=== PATIENT | male | born 1995 | race Caucasian/White ===

== ENCOUNTER 2018-02-26 10:29 | Emergency (ER) | payer OTHER ==
[~2018-02-26] VITALS: Ht 170.2 cm; Wt 58.4 kg
[~2018-02-26 10:29] MED LIST: FLEXERIL10 MG PO; NAPROSYN500 MG PO; TORADOL10 MG PO; VICODIN 5-3001 EACH PO
[2018-02-26 11:15] LABS: HEMATOCRIT 39.8 % (38.0-50.0); HEMOGLOBIN 14.7 G/DL (12.5-16.6); MCH 30.6 PG (29.0-34.0); MCHC 36.9 G/DL (30.0-36.0); MCV 82.9 FL (86-99); RBC DIS.WIDTH-CV 12.3 % (11.8-14.6); RBC DIS.WIDTH-SD 37.5 % (39-53)
[2018-02-26 11:23] LABS: CHLORIDE 107 mEq/L (99-109); POTASSIUM 4.3 mEq/L (3.7-5.4); SODIUM 140 mEq/L (136-147)
[2018-02-26 11:25] LABS: GLUCOSE 103 mg/dL (70-99)
[2018-02-26 11:25] LABS: APPEARANCE CLEAR ((CLEAR)); BILIRUBIN NEGATIVE; BLOOD NEGATIVE; COLOR YELLOW ((YELLOW)); GLUCOSE (STRIP) NEGATIVE; KETONES NEGATIVE; LEUKOCYTES NEGATIVE; NITRITE NEGATIVE; PROTEIN (STRIP) NEGATIVE; SPECIFIC GRAVITY 1.019 (1.000-1.030); UCUL ADDED? NO; UROBILINOGEN 0.2 MG/DL (0.2-1.0)
[2018-02-26 11:29] LABS: CREATININE 0.8 mg/dL (0.6-1.3); GFR ESTIMATE (CALCULATED) > 59 mL/min/ (58.99-99999)
[2018-02-26 11:30] LABS: UREA NITROGEN (BUN) 12 mg/dL (9-23)
[2018-02-26 12:12] LABS: PLATELET COUNT 143 K/uL (156-360)
[2018-02-26 13:45] VITALS: BP 117/68
== END 2018-02-26 13:46 | disposition home or self-care (01) ==
LOC: EME 10:29
DX: R30.0 Dysuria (principal); M54.9 Dorsalgia, unspecified; R10.9 Unspecified abdominal pain; R33.9 Retention of urine, unspecified; R11.0 Nausea; N50.812 Left testicular pain; Z83.3 Family history of diabetes mellitus; Z88.0 Allergy status to penicillin; F17.200 Nicotine dependence, unspecified, uncomplicated
CPT/HCPCS: 76870; 80048; 81003; 85027; 99281; 99284